=== PATIENT | female | born 1955 | race Caucasian/White ===

== ENCOUNTER 2021-06-10 09:37 | Emergency (ER) | payer MEDICARE, OTHER ==
[~2021-06-10] VITALS: Ht 160 cm; Wt 90.9 kg
[2021-06-10 09:54] VITALS: BP 113/53
[2021-06-10] MEDS ORDERED: DOXY100C43 PO (10:32)
[2021-06-10] MEDS ORDERED: CEPH-585 PO (10:32)
== END 2021-06-10 10:52 | disposition home or self-care (01) ==
LOC: ER 09:38
DX: L03.115 Cellulitis of right lower limb (principal); I49.9 Cardiac arrhythmia, unspecified; I87.8 Other specified disorders of veins; G89.29 Other chronic pain; F17.200 Nicotine dependence, unspecified, uncomplicated; F12.90 Cannabis use, unspecified, uncomplicated; Z88.5 Allergy status to narcotic agent; Z88.8 Allergy status to other drugs, medicaments and biological substances; Z79.2 Long term (current) use of antibiotics
CPT/HCPCS: 93005; 99284